=== PATIENT | female | born 1985 | race Caucasian/White ===

== ENCOUNTER 2018-11-11 17:50 | Outpatient (CLI) | payer OTHER ==
[2018-11-11 20:22] LABS: Hematocrit 33.8 % (30.3-42.9); Mean Corpuscular HGB Conc 32 % (30-34); Mean Corpuscular Volume 71 fl (79-97); Red Blood Count 4.78 M/mm3 (3.65-5.03); Red Cell Distribution Width 18.4 % (13.2-15.2)
[2018-11-11 20:25] LABS: Platelet Count 173 K/mm3 (140-440)
--- NOTE | 2018-11-11 21:00 | Ultrasound Report ---
PROCEDURE: US OB BPP WO NON-STRESS TECHNIQUE: Sonographic evaluation for breathing, movement, tone, and amniotic flui d volume was performed. HISTORY: elevated bp in office COMPARISONS: None . FINDINGS: FETUS heart rate is 141 bpm Amniotic fluid volume Normal-score 2. At least one vertical pocket >2 cm or more in vertical axis . breathing: Normal-score 2 . movement: Normal-score 2 . tone: Normal-score 2 . Score: 8 of 8 . IMPRESSION: Normal biophysical profile . This document is electronically signed by Malcolm Turner MD., November 11 2018 08:58:49 PM ET
[2018-11-11 21:56] LABS: Bilirubin,Urine NEG (Negative); Blood,Urine NEG (Negative); Color,Urine Amber (Yellow); Mucus,Urine 3+ /HPF
[2018-11-11 22:18] LABS: Uric Acid 5.5 mg/dL (3.5-7.6)
[2018-11-11 22:27] VITALS: BP 123/83
== END 2018-11-11 22:52 | disposition home or self-care (01) ==
LOC: TRG 17:50
PROVIDERS: ATTEND Obstetrics & Gynecology
DX: O47.03 False labor before 37 completed weeks of gestation, third trimester (principal); Z3A.35 35 weeks gestation of pregnancy; Z90.49 Acquired absence of other specified parts of digestive tract
CPT/HCPCS: 36415; 59025; 76819; 81001; 82565; 83615; 84450; 84460; 84550; 85027

== ENCOUNTER 2018-11-23 20:24 | Inpatient (IN) | payer MEDICAID, OTHER ==
[2018-11-23] MEDS ORDERED: LACTATED RINGERS 1,000 ML ONE (22:46)
[2018-11-23] MEDS ORDERED: BICITRA PO ONE (23:07)
[2018-11-23] MEDS ORDERED: REGLAN IV ONE (23:07)
[2018-11-23] MEDS ORDERED: PEPCID IV ONE (23:07)
--- NOTE | 2018-11-23 23:08 | History and Physical Report ---
History of Present Illness Date of examination: 11/23/18 Date of admission: 11/23/18 20:34 Chief complaint: SIUP at 38 weeks and 3 days gestation in active labor. Previous C/section. History of present illness: Patient is a 33 year old , LMP 01/12/18, EDC 11/25/18 at 39 weeks and 6 days gestation who presented to triage complaining of fluid leakage per vagina since around 8 PM and contractions. She denies any bleeding. She reports good movement. She has a history of previous C/section at 26 weeks for twins. Vitals are stable. tracing is CAT1. Cervix: 4 cm/50%/-2. Past History Past Medical History: other (anemia, UTI, gallstones.) Past Surgical History: section HEAD HOST/HOSTESS History: herpes Social history: no significant social history - Obstetrical History Expected Date of Delivery: 11/25/18 Actual Gestation: 39 Week(s) 6 Day(s) : 5 Para: 4 Number of Pregnancies: 1 Number of Living Children: 5 Medications and Allergies Allergies Allergy/AdvReac Type Severity Reaction Status Date / Time Penicillins Allergy Hives Verified 05/22/14 19:45 Sulfa (Sulfonamide Allergy Itching Verified 05/22/14 19:45 Antibiotics) Home Medications Medication Instructions Recorded Confirmed Last Taken Type Acyclovir 1 tab PO BID 05/17/14 11/07/15 05/17/14 History Pnv,Calcium 72/Iron/Folic Acid 1 each PO DAILY 05/17/14 11/07/15 11/06/15 11:00 History [Pnv Plus Multivit Tab] 1 Ibuprofen [Motrin 600 MG tab] 600 mg PO Q6HR #30 tablet 05/18/14 11/07/15 05/22/14 Rx 600MG oxyCODONE /ACETAMINOPHEN [Percocet 2 tab PO Q4H PRN #30 tablet 05/18/14 11/07/15 05/22/14 Rx 5/325 mg] 2 TABS Clindamycin [Cleocin] 300 mg PO Q8H #21 cap 05/24/14 11/07/15 Unknown Rx Ibuprofen [Motrin 600 MG tab] 600 mg PO Q6H PRN #30 tablet 05/24/14 11/07/15 Unknown Rx oxyCODONE /ACETAMINOPHEN [Percocet 2 tab PO Q4H PRN #30 tablet 05/24/14 11/07/15 Unknown Rx 5/325 mg] Ibuprofen [Motrin 800 MG tab] 800 mg PO TID PRN #30 tablet 11/14/15 Unknown Rx oxyCODONE /ACETAMINOPHEN [Percocet 1 tab PO Q4HR #30 tablet 11/14/15 Unknown Rx 5/325 mg] - Vital Signs Vital signs: Vital Signs Pulse BP 68 131/77 11/23/18 21:44 11/23/18 21:44 Temp Pulse Resp BP Pulse Ox 68 131/77 11/23/18 21:44 11/23/18 21:44 - Physical Exam Cardiovascular: Normal S1, Normal S2 Lungs: Positive: Clear to auscultation Vulva: both: normal Deep Tendon Reflex Grade: Normal +2 - Obstetrical FHR: category 1 Uterine Contraction Monitor Mode: External Cervical Dilatation: 4 Cervical Effacement Percentage: 50 station: -2 Uterine Contraction Pattern: Irregular Uterine Contraction Intensity: Moderate Results Result Diagrams: 11/24/18 00:05 All other labs normal. Assessment and Plan - Patient Problems (1) 39 weeks gestation of Current Visit: Yes Status: Acute (2) Active labor Current Visit: Yes Status: Acute Plan to address problem: Admit to labor floor. IV fluid. monitoring. Patient was counselled for repeat C/section. Risks, benefits, and alternatives of the procedure were discussed in detail with the patient which included but not limited to the risk of infection, hemorrhage requiring blood transfusion, injury to the bowel or bladder and blood vessels. The patient expressed understanding, her questions were answered, and she gave informed consent. Anesthesia notified. (3) Previous section Current Visit: Yes Status: Acute (4) SROM (spontaneous rupture of membranes) Current Visit: Yes Status: Acute
[2018-11-23 23:44] LABS: Basophils % (Auto) 0.4 % (0.0-1.8); Eosinophils # (Auto) 0.1 K/mm3 (0.0-0.4); Eosinophils % (Auto) 1.1 % (0.0-4.3); Hematocrit 33.5 % (30.3-42.9); Lymphocytes # (Auto) 1.8 K/mm3 (1.2-5.4); Mean Corpuscular HGB Conc 33 % (30-34); Mean Corpuscular Volume 71 fl (79-97); Monocytes # (Auto) 0.5 K/mm3 (0.0-0.8); Monocytes % (Auto) 7.8 % (0.0-7.3); Platelet Count 164 K/mm3 (140-440); Red Blood Count 4.74 M/mm3 (3.65-5.03); Red Cell Distribution Width 18.1 % (13.2-15.2)
[2018-11-23] MEDS ORDERED: CLEOCIN 900 MG/50 mL 900 MG/50 ML BAG IV NR (23:45)
[2018-11-23] MEDS ORDERED: PITOCin/NS 20 UNIT/1000ML DRIP 20 UNITS/1,000 ML BAG IV SCH (23:45)
[2018-11-24] MEDS: LACTATED RINGERS 1,000 ML IV SCH ×2 (00:36→06:42)
[2018-11-24 01:01] LABS: Basophils % (Auto) 0.3 % (0.0-1.8); Eosinophils # (Auto) 0.1 K/mm3 (0.0-0.4); Eosinophils % (Auto) 1.2 % (0.0-4.3); Hematocrit 32.1 % (30.3-42.9); Hemoglobin 10.4 gm/dl (10.1-14.3); Lymphocytes # (Auto) 1.8 K/mm3 (1.2-5.4); Lymphocytes % (Auto) 28.5 % (13.4-35.0); Mean Corpuscular HGB Conc 32 % (30-34); Mean Corpuscular Volume 71 fl (79-97); Monocytes # (Auto) 0.4 K/mm3 (0.0-0.8); Platelet Count 160 K/mm3 (140-440); Red Blood Count 4.53 M/mm3 (3.65-5.03)
[2018-11-24] MEDS ORDERED: TORADOL ONE (02:51)
[2018-11-24] MEDS ORDERED: WATER FOR IRRIG STERILE IR ONE (03:10)
[2018-11-24] MEDS ORDERED: NACL 0.9% IR ONE (03:10)
[2018-11-24] MEDS ORDERED: ZOFRAN ONE (03:13)
[2018-11-24] MEDS ORDERED: METHERGINE IM ONE (03:34)
[2018-11-24] MEDS ORDERED: VERSED ONE ×2 (03:38→04:03)
[2018-11-24] MEDS ORDERED: HEMABATE IM ONE (03:51)
[2018-11-24] MEDS ORDERED: DIPRIVAN 10 MG/ML IV ONE (04:13)
[2018-11-24] MEDS ORDERED: TYLENOL PO PRN (04:25)
[2018-11-24] MEDS ORDERED: LANSINOH TP PRN (04:25)
[2018-11-24] MEDS ORDERED: PHENERGAN PR PRN (04:25)
[2018-11-24] MEDS ORDERED: MORPHINE IV PRN ×2 (04:25)
[2018-11-24] MEDS ORDERED: ANUCORT-HC PR PRN (04:25)
[2018-11-24] MEDS ORDERED: TORADOL IV PRN ×2 (04:25)
[2018-11-24] MEDS ORDERED: ZOFRAN IV PRN (04:25)
[2018-11-24] MEDS ORDERED: TUCKS PAD TP PRN (04:25)
[2018-11-24] MEDS ORDERED: NARCAN 0.4 MG/1 ML IV PRN (04:25)
--- NOTE | 2018-11-24 04:41 | Operative Report ---
Operative Report Operative Report: Preoperative diagnosis 1. SIUP at 39 weeks and 6 days gestation in active labor. 2. Previous C/section x 1. Postoperative diagnosis: Same. Procedure: Repeat low-transverse section. Surgeon: Dr. Goyal Flight Technician: none Anesthesia: spinal IVF: RL 2200 cc EBL: 1500 cc Urine: 30 cc clear Complications: intraoperative hemorrhage secondary to uterine atony. Intraoperative findings: 1. A male found in an AGUILA position, delivered at 3:27 AM, Apgars 8 at 1 minute and 9 at 5 minutes, weight 9 lbs. 13 oz. 2. Normal fallopian tubes and ovaries bilaterally. Procedure details: Risks, benefits, and alternatives of the procedure were discussed in detail with the patient which included but not limited to the risk of infection, hemorrhage requiring blood transfusion, injury to the bowel or bladder and blood vessels. The patient expressed understanding, her questions were answered, and she gave informed consent. The patient was taken to the operating room with an IV fluid infusing Ringers lactate. In the operating room, she was placed in a sitting position and given spinal anesthesia. She was then placed in a dorsal supine position with a leftward tilt. Rudolph catheter in Venodyne boots were placed. The abdomen was washed and she was prepared and draped in usual sterile fashion. After confirming adequate anesthesia, the Pfannenstiel skin incision was made in the lower abdomen about 2 cm above the pubic symphysis using the scalpel. This incision was carried down to the underlying fascia using the Bovie. The fascia was opened bilaterally in a curvilinear fashion using the Bovie. 2 straight Kocker clamps were used to grasp the upper edge of the fascia from which the underlying rectus abdominis muscles was dissected off using the Bovie. A similar procedure was done with the lower edge of the fascia to dissect the underlying rectus abdominis muscle. The muscle was bluntly from the midline by pulling. The parietal peritoneum was grasped with 2 hemostat clamps and entered sharply using Metzenbaum scissors. A quick survey of the anatomy revealed a gravid uterus, normal fallopian tubes and ovaries bilaterally. A bladder flap was created. Keon'O retractor was placed in the incision for proper visualization. A low transverse incision was made in the lower uterine segment using the scalpel and extended bilaterally in a curvilinear fashion using bandage scissors. There was copious amount of clear amniotic fluids. The infant was found in an AGUILA position, the head was delivered atraumatically followed by the delivery of the shoulders and the rest of the body at 3:27 AM. The cord was clamped 2 and cut and the infant was handed off to the waiting bomb loader. The was a male, Apgars were 8 at 1 minute and 9 at 5 minutes, weight was 9 pounds and 13 ounces. Cord blood was collected. The placenta was delivered manually and it was complete with a three-vessel cord. The uterine cavity was cleaned of clots and debris using dry lap sponges. The uterine incision was repaired in a running locked fashion using 0 Vicryl sutures. A second layer of imbrication was placed. There was uterine atony responsive to IV pitocin, IM methergine, IM hemabate. The gutters were cleaned of clots and debris using dry lap sponges. After confirming adequate hemostasis, the instruments were removed from the abdominal cavity. The rectus muscle was reapproximated in an interrupted fashion using 0 Vicryl sutures. The fascia was closed in a running fashion using 0 Vicryl sutures. The skin was closed with kurtis. Sterile dressing was placed. The counts of laps, needles, sponges, and instruments were correct 2. The patient tolerated the procedure well, she was taken to the recovery room in a stable condition.
[2018-11-24] MEDS ORDERED: PITOCin/NS 20 UNIT/1000ML DRIP 20 UNITS/1,000 ML BAG IV SCH (05:00)
[2018-11-24] MEDS ORDERED: SODIUM CHLORIDE FLUSH SYRINGE 10 ML IV NR (05:00)
[2018-11-24] MEDS: PERCOCET 5/325 PO PRN ×3 (09:00→21:33)
[2018-11-24 09:05] LABS: Basophils % (Auto) 0.3 % (0.0-1.8); Eosinophils % (Auto) 0.2 % (0.0-4.3); Hematocrit 28.7 % (30.3-42.9); Hemoglobin 9.4 gm/dl (10.1-14.3); Lymphocytes # (Auto) 1.2 K/mm3 (1.2-5.4); Lymphocytes % (Auto) 10.8 % (13.4-35.0); Mean Corpuscular HGB Conc 33 % (30-34); Mean Corpuscular Volume 71 fl (79-97); Monocytes # (Auto) 0.5 K/mm3 (0.0-0.8); Monocytes % (Auto) 4.7 % (0.0-7.3); Platelet Count 144 K/mm3 (140-440); Red Blood Count 4.06 M/mm3 (3.65-5.03); Red Cell Distribution Width 18.5 % (13.2-15.2)
[2018-11-24] MEDS: PRENATAL VITAMIN PO SCH (10:02)
[2018-11-24] MEDS: FEOSOL PO SCH (10:02)
[2018-11-24] MEDS: IBUPROFEN PO PRN ×3 (10:52→21:34)
[2018-11-24] MEDS ORDERED: LACTATED RINGERS 1,000 ML IV SCH (11:30)
[2018-11-24 20:47] LABS: Hematocrit 24.9 % (30.3-42.9); Hemoglobin 8.1 gm/dl (10.1-14.3)
[2018-11-25] MEDS: MILK OF MAGNESIA PO PRN ×2 (00:31→22:13)
[2018-11-25] MEDS: IBUPROFEN PO PRN ×4 (03:35→22:14)
[2018-11-25] MEDS: PERCOCET 5/325 PO PRN ×4 (03:36→22:13)
[2018-11-25] MEDS: PRENATAL VITAMIN PO SCH (09:37)
[2018-11-25] MEDS: FEOSOL PO SCH ×2 (09:37→09:39)
[2018-11-25] MEDS: SENOKOT PO PRN ×3 (09:42→22:14)
[2018-11-25] MEDS: MYLICON PO PRN ×2 (09:42→22:14)
--- NOTE | 2018-11-25 11:34 | Progress Note ---
Assessment and Plan A: POD #1 s/p Repeat c/s Pain well controlled Ambulating, voiding, eating Stable Desires discharge home in am P: Follow Routine PostOp Orders Abdominal Binder Anticipate discharge home in 24-48hrs Subjective - Subjective Date of service: 11/25/18 Principal diagnosis: POD#1 s/p Repeat C/S Patient reports: appetite normal, voiding normally, pain well controlled, flatus, ambulating normally [place]: doing well Objective - Vital Signs Latest vital signs: Vital Signs Temp Pulse Resp BP BP Pulse Ox 11/25/18 08:41 97.9 F 95 H 18 122/76 98 11/25/18 00:03 94 H 108/64 96 11/25/18 00:00 98.2 F 95 H 20 108/64 97 11/24/18 20:15 89 121/74 98 11/24/18 20:10 98.0 F 88 20 121/74 98 11/24/18 16:38 97.9 F 81 24 115/78 96 11/24/18 13:04 98.4 F 66 24 118/62 95 Intake and Output 11/24/18 11/25/18 11/25/18 23:59 07:59 15:59 Intake Total 240 600 Output Total 1100 Balance -860 600 Intake: Oral 240 360 Intake, Free Water 240 Output: Urine 1100 Indwelling Catheter 500 Void 600 Other: Total, Intake Amount 240 360 Total, Output Amount 300 # Voids Void 1 1 - Exam Breasts: Present: normal Cardiovascular: Present: Regular rate, Normal S1, Normal S2, No murmurs Lungs: Present: Clear to auscultation, Normal air movement Abdomen: Present: normal appearance, soft, tenderness (as expected post-op). Absent: distention Vulva: both: normal Uterus: Present: firm, fundal height below umbilicus (-1) Extremities: Present: normal Deep Tendon Reflex Grade: Normal +2 Incision: Present: normal, dry, intact - Labs Labs: Abnormal lab results 11/24/18 Range/Units 19:40 Hgb 8.1 L (10.1-14.3) gm/dl Hct 24.9 L (30.3-42.9) %
[2018-11-26] MEDS: PERCOCET 5/325 PO PRN (06:12)
[2018-11-26] MEDS: IBUPROFEN PO PRN (06:12)
[2018-11-26 09:06] VITALS: BP 112/64
--- NOTE | 2018-11-26 09:39 | Progress Note ---
Assessment and Plan - Patient Problems (1) S/P repeat low transverse Current Visit: Yes Status: Acute Plan to address problem: POD 2 - stable Discharge to home today Wound care instructions given Follow-up at [facility] in 1 week for incision check and ukrtis removal (2) Anemia due to blood loss, acute Current Visit: Yes Status: Acute Plan to address problem: Asymptomatic Continue iron therapy Subjective - Subjective Date of service: 11/26/18 Principal diagnosis: POD #2; s/p Repeat LTCS Interval history: see H&P, Operative Report, and PP/FRONT END MECHANIC Progress Note Patient reports: appetite normal, voiding normally, pain well controlled, flatus, bowel movement, ambulating normally, no dizzy ambulation : doing well Objective - Vital Signs Latest vital signs: Vital Signs Temp Pulse Resp BP BP Pulse Ox 11/26/18 08:14 97.5 F L 94 H 18 112/64 97 11/26/18 00:00 97.5 F L 82 20 115/67 98 11/25/18 15:54 98.8 F 91 H 18 109/63 97 Intake and Output 11/25/18 11/26/18 11/26/18 23:59 07:59 15:59 Intake Total 960 240 Balance 960 240 Intake: Oral 480 240 Intake, Free Water 480 Other: Total, Intake Amount 480 240 # Voids Void 1 1 - Exam Cardiovascular: Present: Regular rate Lungs: Present: Clear to auscultation Abdomen: Present: normal appearance, soft Vulva: both: normal Uterus: Present: normal, firm, fundal height at umbilicus Extremities: Present: normal Incision: Present: normal, dry, intact, other (kurtis in place) Comments: scant lochia
[2018-11-26] MEDS: PRENATAL VITAMIN PO SCH (09:40)
--- NOTE | 2018-11-26 09:51 | Discharge Summary ---
Providers - Providers Date of Admission: 11/23/18 20:34 Date of discharge: 11/26/18 Attending physician: NATHAN EDGAR MD Primary care physician: NATHAN EDGAR MD Hospitalization Reason for admission: active labor, rupture of membranes, IUP at term Delivery: Procedure: repeat low transverse Episiotomy: none Laceration: none Incision: normal, dry, intact, other (kurtis in place) Other procedures: none complications: none Discharge diagnosis: IUP at term delivered baby: male Hospital course: Uncomplicated Condition at discharge: Stable Disposition: [id number] TO HOME OR SELFCARE - Discharge Diagnoses (1) S/P repeat low transverse Status: Acute (2) Anemia due to blood loss, acute Status: Acute Comment: Asymptomatic Continue iron therapy Plan - Discharge Medications Prescriptions: Ferrous Sulfate [Feosol 325 MG tab] 325 mg PO QDAY #30 tablet Ibuprofen [Motrin 800 MG tab] 800 mg PO Q6H PRN #30 tablet PRN Reason: Pain, Mild (1-3) - Provider Discharge Summary Activity: routine, no sex for 6 weeks, no heavy lifting 4 weeks, no strenuous exercise Diet: routine Instructions: routine Additional instructions: [] Smoking cessation referral if applicable(refer to patient education folder for contact #) [] Refer to [facility]'s [facility] Booklet Call your doctor immediately for: * Fever > 100.5 * Heavy vaginal bleeding ( >1 pad per hour) * Severe persistent headache * Shortness of breath * Reddened, hot, painful area to leg or breast * Drainage or odor from incision. * Keep incision clean and dry at all times and follow doctor's instructions regarding bathing/showering - Follow up plan Follow up: NATHAN EDGAR MD [Primary Care Provider] - 7 Days (Follow-up at [facility] in 1 week for incision check and kurtis removal)
== END 2018-11-26 10:00 | disposition home or self-care (01) | DRG 787 ==
LOC: TRG 20:24 → LD 20:34 → TRG 20:34 → OB 11-24 06:14
PROVIDERS: ADMIT Obstetrics & Gynecology; ATTEND Obstetrics & Gynecology
PROC: 10D00Z1 Extraction of Products of Conception, Low, Open Approach (ICD-10-PCS; principal; 2018-11-24)
DX: O34.211 Maternal care for low transverse scar from previous cesarean delivery (principal); O72.1 Other immediate postpartum hemorrhage; D62 Acute posthemorrhagic anemia; Z3A.39 39 weeks gestation of pregnancy; O90.81 Anemia of the puerperium; Z37.0 Single live birth; Z88.0 Allergy status to penicillin; Z88.2 Allergy status to sulfonamides
CPT/HCPCS: 36415; 85014; 85018; 85025; 86592; 86850; 86900; 86901; G0378; J1885; J2210; J2250; J2270; J2405; J2590; J2704; J2765; J7120